=== PATIENT | male | born 1995 | race Caucasian/White ===

== ENCOUNTER 2016-12-12 22:32 | Emergency (ER) | payer OTHER ==
[~2016-12-12] VITALS: Ht 170.2 cm; Wt 75.0 kg
[~2016-12-12 22:32] MED LIST: NORCO 325 MG-51 TAB PO
[2016-12-12 22:36] VITALS: TEMP 98.4
[2016-12-12] MEDS ORDERED: LEXAPRO 10MG10 MG PO (22:39)
[2016-12-12] MEDS ORDERED: CRUTCHES MC (23:17)
[2016-12-13] VITALS: BP 130/96; PULSE 68
[2016-12-13] MEDS ORDERED: NORCO 325 MG-51 TAB PO (13:56)
== END 2016-12-13 | disposition home or self-care (01) ==
LOC: COL.ER 22:32
DX: S93.401A Sprain of unspecified ligament of right ankle, initial encounter (principal); X50.0XXA Overexertion from strenuous movement or load, initial encounter; Y92.009 Unspecified place in unspecified non-institutional (private) residence as the place of occurrence of the external cause

== ENCOUNTER 2016-12-13 12:55 | Emergency (ER) | payer OTHER ==
[~2016-12-13] VITALS: Ht 170.2 cm; Wt 75.0 kg
[~2016-12-13 12:55] MED LIST changes: +CRUTCHES MC; +LEXAPRO 10MG10 MG PO
[2016-12-13 13:00] VITALS: TEMP 98.2
[2016-12-13] MEDS ORDERED: NORCO 325 MG-51 TAB PO (13:56)
[2016-12-13 13:59] VITALS: BP 136/73; PULSE 60
== END 2016-12-13 14:08 | disposition home or self-care (01) ==
LOC: COL.ER 12:55
DX: S92.002A Unspecified fracture of left calcaneus, initial encounter for closed fracture (principal); X50.0XXA Overexertion from strenuous movement or load, initial encounter

== ENCOUNTER 2017-03-28 00:33 | Emergency (ER) | payer OTHER ==
[~2017-03-28] VITALS: Ht 170.2 cm; Wt 75.0 kg
[2017-03-28 00:35] VITALS: BP 136/92; TEMP 97.6
[2017-03-28] MEDS ORDERED: CRUTCHES MC (02:08)
[2017-03-28] MEDS ORDERED: ULTRAM 50MG TAB50 MG PO (02:08)
[2017-03-28 02:46] VITALS: PULSE 65
== END 2017-03-28 02:46 | disposition home or self-care (01) ==
LOC: COL.ER 00:33
DX: S93.401A Sprain of unspecified ligament of right ankle, initial encounter (principal); F32.9 Major depressive disorder, single episode, unspecified; F41.9 Anxiety disorder, unspecified; X50.0XXA Overexertion from strenuous movement or load, initial encounter

== ENCOUNTER → 2017-06-17 | Outpatient (CLI) | payer OTHER ==
[~2017-06-17] MED LIST changes: +ULTRAM 50MG TAB50 MG PO
== END ==
LOC: COL.RAD 12:34
DX: R51 Headache (principal)
CPT/HCPCS: A9585

== ENCOUNTER 2018-04-06 13:38 | Emergency (ER) | payer OTHER ==
[~2018-04-06] VITALS: Ht 170.2 cm; Wt 72.3 kg
[2018-04-06 13:42] VITALS: TEMP 98.7
[2018-04-06 16:23] VITALS: BP 116/73; PULSE 57
== END 2018-04-06 16:24 | disposition home or self-care (01) ==
LOC: COL.ER 13:38
DX: B34.9 Viral infection, unspecified (principal); F41.9 Anxiety disorder, unspecified; F43.10 Post-traumatic stress disorder, unspecified; F32.9 Major depressive disorder, single episode, unspecified; Z87.891 Personal history of nicotine dependence
CPT/HCPCS: J7030

== ENCOUNTER 2018-05-06 17:15 | Observation (INO) | payer OTHER ==
[~2018-05-06] VITALS: Ht 170.2 cm; Wt 75.3 kg
[2018-05-06 18:11] LABS: BASO % 0.4 % (0.0-2.0); EOS # 0.2 (0.0-0.7); GRAN # 3.8 (1.4-6.5); GRAN % 51.8 % (42.2-75.2); HEMATOCRIT 40.7 % (42.0-52.0); HEMOGLOBIN 14.3 g/dl (13.5-18.0); LYMPH # 2.7 (1.2-3.4); LYMPH % 37.4 % (20.0-51.0); MEAN CELL VOLUME 85 fl (80.0-100.0); MEAN CORPUSCULAR HEMOGLOBIN 30 pg (27.0-31.0); MEAN CORPUSCULAR HGB CONC 35 g/dl (33.0-37.0); MEAN PLATELET VOLUME 10.9 fl (7.4-10.4); MONO # 0.5 (0.1-0.6); MONO % 7.1 % (1.7-9.3); PLATELET COUNT 215 K/mm3 (130-400); RED BLOOD COUNT 4.77 M/mm3 (4.20-5.60); REDCELL DISTRIBUTION WIDTH-CV 11.9 % (11.5-14.5)
[2018-05-06 18:23] LABS: ALANINE AMINOTRANSFERASE 82 U/L (21-72); ALBUMIN 4.3 gm/dL (3.5-5.0); ALKALINE PHOSPHATASE 47 U/L (50-136); ANION GAP 9 mmol/L (7-16); AST,SGOT 71 U/L (15-37); BILIRUBIN,TOTAL 0.5 mg/dL (0.0-1.0); BLOOD UREA NITROGEN 15 mg/dL (9-20); C-REACTIVE PROTEIN < 0.5 mg/dL (0.0-0.9); CALCIUM 9.1 mg/dL (8.4-10.2); CARBON DIOXIDE 29 mmol/L (22-30); CHLORIDE 101 mmol/L (98-107); CREATININE, serum 0.79 mg/dL (0.66-1.25); GLUCOSE 84 mg/dL (74-106); LIPASE 59 U/L (23-300); POTASSIUM 3.8 mmol/L (3.4-5.0); SODIUM 138 mmol/L (137-145); TOTAL PROTEIN 6.8 gm/dL (6.4-8.2)
[2018-05-06 19:21] LABS: COLLECTION METHOD CLEAN CATCH
[2018-05-06 19:29] LABS: PH 7 (5-8); SQUAMOUS EPITHELIAL None Seen /hpf; URINE APPEARANCE Clear; URINE BACTERIA None Seen /hpf; URINE BILIRUBIN Negative (NEGATIVE); URINE BLOOD Negative (NEGATIVE); URINE COLOR Straw; URINE GLUCOSE Negative (NEGATIVE); URINE KETONE Negative (NEGATIVE); URINE LEUKOCYTE ESTERASE Negative (NEGATIVE); URINE NITRATE Negative (NEGATIVE); URINE PROTEIN(semi-quant) Negative (NEGATIVE); URINE RBC 0-2 /hpf; URINE UROBILINOGEN Negative (NEGATIVE)
--- NOTE | 2018-05-06 21:35 | NUR ---
Received from ED per w/c, 23 y/o male with diagnosis abdominal pain. Is alert and oriented x4. Has SL to left hand. Independent with ambulation. Reports pain 5/10 to right upper abdomen at this time. Oriented to bed and room.
--- NOTE | 2018-05-06 22:05 | NUR ---
Admission questions reviewed. Started NS at 125cc/hr to left hand without redness or swelling. Denies need for pain meds at this time. Is NPO.
[2018-05-06 23:33] VITALS: BP 126/58; PULSE 48; TEMP 97.4
--- NOTE | 2018-05-07 01:35 | NUR ---
Patient reports pain to right upper abdomen of 7/10. Describes as "cramping" like feeling. Medicated with IV Dilaudid 0.5mg now. Denies nausea at this time.
[2018-05-07 03:18] VITALS: BP 96/42; PULSE 51; TEMP 98
--- NOTE | 2018-05-07 03:45 | NUR ---
Complains of nausea and pain. Medicated with IV Zofran and IV Dilaudid at this time. IVF continue to left hand without redness or swelling.
[2018-05-07 07:20] VITALS: BP 118/45; PULSE 50; TEMP 97.6
--- NOTE | 2018-05-07 08:00 | NUR ---
PATIENT IS A&O. VSS. BOWEL SOUNDS ACTIVE ALL FOUR QUADRANTS. PATIENT COMPLAINS OF NAUSEA BUT DENIES VOMITING AT THIS TIME. PATIENT IS NPO. POSITIVE PEDAL PULSES EQUAL BILATERALLY. CALL LIGHT WITHIN REACH. FIANCE AT THE BEDSIDE. NO OTHER NEEDS AT THIS TIME.
[2018-05-07 08:29] LABS: HEMATOCRIT 38.9 % (42.0-52.0); HEMOGLOBIN 13.2 g/dl (13.5-18.0); MEAN CELL VOLUME 88 fl (80.0-100.0); MEAN CORPUSCULAR HEMOGLOBIN 30 pg (27.0-31.0); MEAN CORPUSCULAR HGB CONC 34 g/dl (33.0-37.0); MEAN PLATELET VOLUME 11.1 fl (7.4-10.4); PLATELET COUNT 184 K/mm3 (130-400); RED BLOOD COUNT 4.41 M/mm3 (4.20-5.60); REDCELL DISTRIBUTION WIDTH-CV 11.9 % (11.5-14.5)
[2018-05-07 08:31] LABS: ALBUMIN 3.6 gm/dL (3.5-5.0); BILIRUBIN,TOTAL 0.8 mg/dL (0.0-1.0); CALCIUM 8.6 mg/dL (8.4-10.2); CREATININE, serum 0.89 mg/dL (0.66-1.25); POTASSIUM 4.2 mmol/L (3.4-5.0); TOTAL PROTEIN 5.9 gm/dL (6.4-8.2)
--- NOTE | 2018-05-07 10:50 | NUR ---
First visit from the line technician. No needs right now.
--- NOTE | 2018-05-07 11:34 | NUR ---
TYLENOL 650 MG [address] PLATA TO THIS NURSE.
[2018-05-07 11:39] VITALS: BP 115/58; PULSE 54; TEMP 98.2
--- NOTE | 2018-05-07 13:20 | NUR ---
ANTONY met with patient and girlfriend about discharge plans. Patient lives independently at home with his girlfriend. Patient's PCP is Dr Tobin and [facility] Patient does not use any DME or home health services. Patient does not have a DPOA and is not interested in that at this time. Patient plans to return home upon discharge. SW does not anticipate any discharge plans.
[2018-05-07 15:48] VITALS: BP 114/61; PULSE 51; TEMP 98.1
--- NOTE | 2018-05-07 16:54 | NUR ---
REPORT GIVEN TO SANDIE CLEMENT.
== END 2018-05-07 18:16 | disposition home or self-care (01) ==
LOC: COL.ER 17:15 → SURG 20:59
PROVIDERS: Nurse Practitioner; ADMIT Surgery
DX: R10.11 Right upper quadrant pain (principal); R10.13 Epigastric pain; F17.210 Nicotine dependence, cigarettes, uncomplicated
CPT/HCPCS: G0378; J1170; J2405; J7030; Q9967

== ENCOUNTER → 2018-06-08 | Outpatient (CLI) | payer OTHER ==
[2018-06-08 11:24] LABS: BASO % 0.4 % (0.0-2.0); EOS # 0.2 (0.0-0.7); EOS % 2.4 % (0-4.0); GRAN # 3.8 (1.4-6.5); GRAN % 48.3 % (42.2-75.2); HEMATOCRIT 42.2 % (42.0-52.0); HEMOGLOBIN 14.7 g/dl (13.5-18.0); LYMPH # 3.2 (1.2-3.4); LYMPH % 40.3 % (20.0-51.0); MEAN CELL VOLUME 87 fl (80.0-100.0); MEAN CORPUSCULAR HEMOGLOBIN 30 pg (27.0-31.0); MEAN CORPUSCULAR HGB CONC 35 g/dl (33.0-37.0); MEAN PLATELET VOLUME 11.5 fl (7.4-10.4); MONO # 0.7 (0.1-0.6); MONO % 8.2 % (1.7-9.3); PLATELET COUNT 185 K/mm3 (130-400); RED BLOOD COUNT 4.85 M/mm3 (4.20-5.60); REDCELL DISTRIBUTION WIDTH-CV 11.7 % (11.5-14.5)
[2018-06-08 11:33] LABS: ALBUMIN 3.9 gm/dL (3.5-5.0); BILIRUBIN,TOTAL 0.5 mg/dL (0.0-1.0); CALCIUM 9.1 mg/dL (8.4-10.2); CREATININE, serum 0.99 (0.66-1.25); POTASSIUM 4.1 mmol/L (3.4-5.0); TOTAL PROTEIN 6.3 gm/dL (6.4-8.2)
== END ==
LOC: ZMSC 10:19
PROVIDERS: Surgery
DX: Z01.89 Encounter for other specified special examinations (principal)